=== PATIENT | male | born 1995 | race Caucasian/White ===

== ENCOUNTER 2016-09-08 23:50 | Emergency (ER) | payer OTHER ==
[~2016-09-08] VITALS: Ht 170.2 cm; Wt 63.0 kg
[2016-09-09] VITALS: Ht 170.2 cm; Wt 63.0 kg
[2016-09-09] MEDS ORDERED: FLUC150T17 PO (00:42)
[2016-09-09] MEDS ORDERED: IBUP-1542 PO (00:42)
[2016-09-09] MEDS ORDERED: CLOT30CR24 TOP (00:42)
--- NOTE | 2016-09-09 00:46 | ERD ---
ER Documentation Chief Complaint Date/Time DATE: 09/09/16 TIME: 00:45 Chief Complaint L foot blister and pain HPI 21-year-old male presents here in emergency department for complaints of blisters in the left foot, dryness of the skin, maceration of the skin in between the toes of the left foot, has been having it for the last 1 week. Patient complaining of pain, burning pain, 4/10 scale, as was upon touching the area. Patient denies any fever or chills. Patient denies any discharge coming from the area. ROS All systems reviewed and are negative except as per history of present illness. Medications Home Meds Active Scripts Clotrimazole* (Clotrimazole* AF) 1% - 30 Gm Cream.gm., 1 APPLIC TOP BID for 7 Days, TUB Prov:[employer] 09/09/16 Fluconazole* (Diflucan*) 150 Mg Tablet, 150 MG PO ONCE, #1 TAB Prov:[employer] 09/09/16 Ibuprofen* (Motrin*) 600 Mg Tab, 600 MG PO Q6H Y for PAIN AND OR ELEVATED TEMP, #30 TAB Prov:[employer] 09/09/16 Allergies Allergies: Coded Allergies: No Known Allergy (Unverified , 09/09/16) PMhx/Soc Medical and Surgical Hx: pt denies Medical Hx History of Surgery: Yes (RIGHT HAND TUMOR EXCISION) Anesthesia Reaction: No Hx Neurological Disorder: No Hx Respiratory Disorders: No Hx Cardiac Disorders: No Hx Psychiatric Problems: No Hx Miscellaneous Medical Probl: No Hx Alcohol Use: Yes (SOCIAL) Hx Substance Use: No Hx Tobacco Use: No Smoking Status: Never smoker FmHx Family History: No coronary disease, No diabetes, No other Physical Exam Vitals Vital Signs Date Time Temp Pulse Resp B/P Pulse Ox O2 Delivery O2 Flow Rate FiO2 09/09/16 00:00 98.6 96 18 124/67 98 Physical Exam GENERAL: The patient is well developed and appropriate for usual state of health, in no apparent distress. CHEST: Clear to auscultation bilaterally. There are no rales, wheezes or rhonchi. HEART: Regular rate and rhythm. No murmurs, clicks, rubs or gallops. No S3 or S4. ABDOMEN: Soft, nontender and nondistended. Good bowel sounds. No rebound or guarding. No gross peritonitis. No gross organomegaly or masses. No Webber sign or McBurney point tenderness. BACK: No midline or flank tenderness. EXTREMITIES: Equal pulses bilaterally. There is no peripheral clubbing, cyanosis or edema. No focal swelling or erythema. Full range of motion. Grossly neurovascularly intact. NEURO: Alert and oriented. Cranial nerves 2-12 intact. Motor strength in all 4 extremities with 5/5 strength. Sensation grossly intact. Normal speech and gait. SKIN: Noted maceration of the skin in between the toes of the left foot, blisters noted, dryness of the skin, peeling of the skin. There is no apparent ecchymosis or petechia. The skin is warm and dry. HEMATOLOGIC AND LYMPHATIC: There is no evidence of excessive bruising or lymphedema. No gross cervical, axillary, or inguinal lymphadenopathy. Procedures/MDM Medical decision making: Patient symptoms most likely is consistent with tinea pedis. No symptoms of cellulitis at this time. No symptoms of sepsis at this time. No symptoms of neurovascular compromise. Patient was given for clotrimazole 1% cream, fluconazole, ibuprofen, is advised to elevate affected area, keep area dry, take medications as prescribed. Patient was advised to return to emergency department for any worsening symptoms, follow-up with primary care doctor in 2-3 days for reevaluation of symptoms Departure Diagnosis: Primary Impression: Tinea pedis Laterality: left Qualified Code: B35.3 - Tinea pedis of left foot Condition: Stable Patient Instructions: [facility] HUGO AGUAYO NP Sep 09, 2016 00:46
[2016-09-10] MEDS ORDERED: PRED20TA PO (11:13)
[2016-09-10] MEDS ORDERED: HYDR-902 PO ×3 (11:13→11:39)
[2016-09-10] MEDS ORDERED: BACTDS PO (11:13)
== END 2016-09-09 01:10 | disposition home or self-care (01) ==
LOC: FTE 23:50
DX: B35.3 Tinea pedis (principal)
CPT/HCPCS: 99283

== ENCOUNTER 2016-09-10 09:40 | Emergency (ER) | payer OTHER ==
[~2016-09-10] VITALS: Wt 62.0 kg
[~2016-09-10 09:40] MED LIST: CLOT30CR24 TOP; FLUC150T17 PO; IBUP-1542 PO
[2016-09-10] MEDS ORDERED: ONDANSETRON (ODT) 4 MG TAB ODT STA (11:01)
--- NOTE | 2016-09-10 11:11 | ERD ---
ER Documentation Chief Complaint Date/Time DATE: 09/10/16 TIME: 11:02 Chief Complaint LEFT FOOT INJURY 5 DAYS AGO, AMBULATORY HPI 21-year-old otherwise healthy male presents to the emergency department for ongoing complaints of left sided foot pain. Patient was seen at this ER 2 days ago and diagnosed with tinea pedis. Patient was provided with fluconazole and topical antifungal cream as well as Motrin for pain control. Patient states that his symptoms have now worsened and he has noticed new blister like lesions on the plantar surface of his foot. Patient states he has experienced no pain relief with the Motrin. Patient states he is currently an 8 out of 10 constant burning pain which increases to a 9 out of 10 when he attempts to walk. Patient also states he did experience significant itching. Patient notes that there is also noticed drainage from the site of infection. Patient denies any fever or chills at this time. ROS All systems reviewed and are negative except as per history of present illness. Medications Home Meds Active Scripts Clotrimazole* (Clotrimazole* AF) 1% - 30 Gm Cream.gm., 1 APPLIC TOP BID for 7 Days, TUB Prov:[employer] 09/09/16 Fluconazole* (Diflucan*) 150 Mg Tablet, 150 MG PO ONCE, #1 TAB Prov:[employer] 09/09/16 Ibuprofen* (Motrin*) 600 Mg Tab, 600 MG PO Q6H Y for PAIN AND OR ELEVATED TEMP, #30 TAB Prov:[employer] 09/09/16 Allergies Allergies: Coded Allergies: No Known Allergy (Unverified , 09/09/16) PMhx/Soc Medical and Surgical Hx: pt denies Medical Hx History of Surgery: Yes (RIGHT HAND TUMOR EXCISION) Anesthesia Reaction: No Hx Neurological Disorder: No Hx Respiratory Disorders: No Hx Cardiac Disorders: No Hx Psychiatric Problems: No Hx Miscellaneous Medical Probl: No Hx Alcohol Use: Yes (SOCIAL) Hx Substance Use: No Hx Tobacco Use: No Smoking Status: Never smoker Physical Exam Vitals Vital Signs Date Time Temp Pulse Resp B/P Pulse Ox O2 Delivery O2 Flow Rate FiO2 09/10/16 09:43 97.0 80 17 113/71 99 Physical Exam General: Well developed, well nourished, interactive, no distress Head: Normocephalic, atraumatic, nontoxic-appearing in no acute distress EENT: Pupils equally reactive, EOM intact, posterior pharynx without exudates, uvula midline, tympanic membranes without erythema or swelling bilaterally Neck: Supple, no lymphadenopathy Respiratory: Lungs clear bilaterally, no distress Cardiovascular: RRR, no murmurs, rubs, or gallops Abdominal: Soft, non-tender, non-distended, no peritoneal signs : Deferred MSK: No edema, no unilateral swelling, moving all four extremities Nurologic: Alert and oriented Skin: Superficial excoriation surrounding the distal left lower extremity web spaces in between toes. One vesicular lesion appreciated along the middle plantar surface of left foot. Wounds are open and oozing. No active bleeding. No evidence of underlying abscess formation. Procedures/MDM This is a 21-year-old male who returns to the emergency department for a wound check. Patient was seen and diagnosed with tinea pedis 40 hours ago and provided with antifungal oral and topical medication as well as Motrin. Patient states however that he has not improved since that time. Patient additionally notes that he is experiencing intense itching and some mild open drainage from the site. Patient denies fever or chills. Based on history of present illness and clinical exam patient appears to have an acute bacterial infection secondary to fungal infection of the left toes. Patient also appears to show evidence significant for possible eczematous reaction. Patient instructed to continue antifungal treatment as it may take a while to heal. Additionally patient will be placed on oral prednisone as well as Bactrim. I also instructed the patient to keep the area clean and dry. I will provide the patient with a short course of [place] to control his pain. Continue Motrin throughout the day. Patient requested additional days off of work. I will provide him with a note. Patient to return to the emergency department in 48 hours if symptoms do not begin to improve slightly. I discussed with the patient that it may take a while to heal the fungus. Case discussed with Dr Buck Based on patient's history of present illness and physical examination the decision was made to discharge. The patient was re-evaluated after ED treatment and stabilizing measures, and symptoms have improved. There is no evidence of life threatening injuries or illnesses at this time. On re-examination, patient resting in no distress, stable vital signs, reports feeling better and safe for discharge with outpatient follow up with PMD in 1-2 days. Patient given return precautions. CHRIS CARREON PA-C Sep 10, 2016 11:11
[2016-09-10] MEDS ORDERED: PRED20TA PO (11:13)
[2016-09-10] MEDS ORDERED: HYDR-902 PO ×3 (11:13→11:39)
[2016-09-10] MEDS ORDERED: BACTDS PO (11:13)
[2016-09-10] MEDS ORDERED: HYDROCODONE/APAP (10/325) TAB PO ONE (11:30)
== END 2016-09-10 11:40 | disposition home or self-care (01) ==
LOC: FTE 09:40
DX: B35.3 Tinea pedis (principal)
CPT/HCPCS: Z7502; Z7610; 99284